=== PATIENT | female | born 1970 | race Caucasian/White ===

== ENCOUNTER → 2023-10-21 12:33 | Outpatient (REF) | payer OTHER, SELFPAY | LOC: HWWDC 12:33 | PROVIDERS: ATTENDING PHYSICIAN Family Medicine | DX: M54.12 Radiculopathy, cervical region (principal); M67.912 Unspecified disorder of synovium and tendon, left shoulder; Z12.31 Encounter for screening mammogram for malignant neoplasm of breast | CPT/HCPCS: 73030; 77063; 77067 ==

== ENCOUNTER → 2023-11-27 13:20 | Outpatient (REF) | payer OTHER, SELFPAY | LOC: MRI 3T 13:20 | PROVIDERS: ATTENDING PHYSICIAN Family Medicine; REFERRING PHYSICIAN Specialist | DX: M54.12 Radiculopathy, cervical region (principal); M67.912 Unspecified disorder of synovium and tendon, left shoulder | CPT/HCPCS: 73221 ==

== ENCOUNTER → 2025-05-05 08:29 | Outpatient (REF) | payer OTHER, SELFPAY | LOC: HWWDC 08:29 | PROVIDERS: ATTENDING PHYSICIAN Family Medicine; REFERRING PHYSICIAN Obstetrics & Gynecology | DX: Z12.31 Encounter for screening mammogram for malignant neoplasm of breast (principal) | CPT/HCPCS: 77063; 77067 ==